=== PATIENT | female | born 1975 ===

== ENCOUNTER 2016-09-05 09:57 | Observation (INO) | payer OTHER ==
[2016-09-05 09:59] VITALS: BMI 28.3
[2016-09-05 10:01] VITALS: BP 95/67; PULSE 69; RESP 19; TEMP 98.5; O2SAT 98
--- NOTE | 2016-09-05 12:23 | US ---
HISTORY: Right upper quadrant pain COMPARISON: None. TECHNIQUE: Sonographic evaluation of the right upper quadrant of the abdomen. FINDINGS: LIVER: Measures 15.6 cm in length. Normal echogenicity of the liver parenchyma. No mass. No intrahepatic bile duct dilatation. GALLBLADDER: Unremarkable. No gallstones. COMMON BILE DUCT: Measures 5 mm. No stones. No dilatation. PANCREAS: Unremarkable as visualized. No mass. No ductal dilatation. RIGHT KIDNEY: Measures 12.3 cm in length. Normal echogenicity. No calculus, mass, or hydronephrosis. AORTA: No aneurysmal dilatation. IVC: Unremarkable. OTHER FINDINGS: None . IMPRESSION: Unremarkable abdominal ultrasound examination. No evidence of cholelithiasis or cholecystitis.
[2016-09-05] MEDS: Sodium Chloride 0.9% 500 ML IV SCH ×2 (12:35→15:35)
--- NOTE | 2016-09-05 12:35 | ED PDOC ---
HPI: Abdomen Chief Complaint (Provider): Pt. denies Rib Injury but does state experiencing pain in the RUQ History Per: Patient History/Exam Limitations: no limitations Onset/Duration Of Symptoms: Days (One) Outside of [place] travel?: No Current Symptoms Are (Timing): Still Present Severity: Moderate Pain Scale Rating Of: 7 Location Of Pain/Discomfort: RUQ Quality Of Discomfort: Sharp Associated Symptoms: Nausea, Vomiting Exacerbating Factors: None Alleviating Factors: None Last Bowel Movement: Yesterday Abnormal Vaginal Bleeding: No Last Menstral Period: 08/30/16 <Pelon Mckeon - Last Filed: 09/05/16 13:14> <Nicky De La Cruz - Last Filed: 09/05/16 15:38> Time Seen by Provider: 09/05/16 10:24 Chief Complaint (Nursing): Rib Injury Additional Complaint(s): Pt. here today complaining of abdominal pain localized to RUQ. Pt. explains the pain is localized near her rib under her right breast. Pt. reports pain begain yesterday in the afternoon all of a suddent. Patient denies any food intake at that time bur reports vomiting x 1. The vomiting episode was non-bloody and non- billious. Pt. states the pain got better spontaneously but still felt a persistent discomfort and subsequently vomited x 2 after the initial episode of vomit. Pt. states that she has no had anything to eat since last afternoon or used any medication. Pt. states that she was able to walk to the hospital by herself unassisted this morning because the pain persists. Pain is 7/10 and has not vomited this morning. Pt. also states she has not had this type of pain in the past. On ROS, pt. denies any hemoptysis, hematemeis, chest pain, shortness of breath, flank pain, dysuria, hematuria, vaginal bleeding, fever, chills, night sweats or weight loss. Pt. also denies any alcohol, tobacco, or drug use. (Pelon Mckeon) Past Medical History - Medical History PMH: Arthritis Other PMH: Rt. shoulder impingement - Surgical History Surgical History: Appendectomy Other surgeries: Breast Implant Removal - Family History Family History: States: Unknown Family Hx - Living Arrangements Living Arrangements: Other (with son) - Social History Current smoker - smoking cessation education provided: No Alcohol: Social Drugs: Denies <Pelon Mckeon - Last Filed: 09/05/16 13:14> <Nicky De La Cruz - Last Filed: 09/05/16 15:38> Vital Signs: Last Vital Signs Temp 98.5 F 09/05/16 10:00 Pulse 69 09/05/16 10:00 Resp 19 09/05/16 10:00 BP 95/67 L 09/05/16 10:00 Pulse Ox 98 09/05/16 13:15 - Home Medications Home Medications: Ambulatory Orders Medication Instructions Recorded traMADol [Ultram] 50 mg PO Q8 #10 tab 09/07/15 Clindamycin [Cleocin] 300 mg PO QID #40 cap 12/09/15 Dapsone 100 mg PO DAILY #10 tab 12/09/15 Methylprednisolone [Medrol] 4 mg PO TITR #1 unit 12/09/15 - Allergies Allergies/Adverse Reactions: Allergies Allergy/AdvReac Type Severity Reaction Status Date / Time No Known Allergies Allergy Verified 04/02/15 08:31 Review of Systems Gastrointestinal: Positive for: Abdominal Pain (See HPI) <Pelon Mckeon - Last Filed: 09/05/16 13:14> Physical Exam - Reviewed Vital Signs Reviewed: Yes - Physical Exam Appears: Positive for: Non-toxic, No Acute Distress (smiling) Head Exam: Positive for: ATRAUMATIC, NORMOCEPHALIC Eye Exam: Positive for: Normal appearance. Negative for: Scleral icterus Neck: Positive for: Supple Cardiovascular/Chest: Positive for: Regular Rate, Rhythm. Negative for: Murmur Respiratory: Positive for: Normal Breath Sounds. Negative for: Wheezing Gastrointestinal/Abdominal: Positive for: Tenderness (Rt. upper quadrant, no bruising noted in the Rt. upper quadrant area). 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 (Nicky De La Cruz) - Progress ED Course And Treament: 1- I.V. fluids 2- I.V morphine, pepcid, morphine 3- CBC, CMP, lipase, amylase, urine dip, urine preg 4- RUQ U/S w/ gallbladder (Pelon Mckeon) ED OBSERVATION <Pelon Mckeon - Last Filed: 09/05/16 13:14> Date of observation admission: 09/05/16 Time of observation admission: 11:00 <Nicky De La Cruz - Last Filed: 09/05/16 15:38> - Observation admission statement Patient is being placed in observation because:: Abdominal pain (Nicky De La Cruz) - Goals of Observation Goals of observation are:: resolution of symptoms (Nicky De La Cruz) Disposition - Disposition Disposition Time: 13:15 <Pelon Mckeon - Last Filed: 09/05/16 13:14> - Patient ED Disposition Is Patient to be Admitted: No - Disposition Disposition: Routine/Home <Nicky De La Cruz - Last Filed: 09/05/16 15:38> - Clinical Impression Clinical Impression: RUQ abdominal pain - Disposition Condition: STABLE
[2016-09-05 12:55] LABS: HEMATOCRIT 36.8 % (34.0-47.0); MEAN CELL VOLUME 88.5 fl (81.0-99.0); MEAN CORPUSCULAR HGB CONC 32.7 g/dL (33.0-37.0); RED CELL DISTRIBUTION WIDTH 13.5 % (11.5-14.5); WHITE BLOOD COUNT 9.9 K/uL (4.8-10.8)
[2016-09-05 13:02] LABS: ALB/GLOB RATIO 1.6 (1.0-2.1); ALKALINE PHOSPHATASE 64 U/L (38-126); ALT/SGPT 55 U/L (9-52); AMYLASE 81 U/L (30-110); AST/SGOT 34 U/L (14-36); BILIRUBIN,TOTAL 0.4 mg/dl (0.2-1.3); BLOOD UREA NITROGEN 9 mg/dl (7-17); CALCIUM 9.1 mg/dL (8.4-10.2); CARBON DIOXIDE 28 mmol/L (22-30); CHLORIDE 103 mmol/L (98-107); GFR AFRICAN-AMERICAN > 60; GLUCOSE,RANDOM 76 mg/dL (65-105); LIPASE 75 U/L (23-300); POTASSIUM 3.8 MMOL/L (3.6-5.0); SODIUM 143 mmol/l (132-148); TOTAL PROTEIN 7.5 G/DL (6.3-8.2)
--- NOTE | 2016-09-05 14:25 | CT ---
PROCEDURE: CT Abdomen and Pelvis without intravenous contrast HISTORY: R flank pain COMPARISON: 09/07/2015 TECHNIQUE: Without contrast.. Contrast Dose: 0 Radiation dose: Total exam DLP = 829.18 mGy-cm. This CT exam was performed using one or more of the following dose reduction techniques: Automated exposure control, adjustment of the mA and/or kV according to patient size, and/or use of iterative reconstruction technique. FINDINGS: LOWER THORAX: Probable dependent atelectasis posterior lower lobe bilaterally. LIVER: Unremarkable. No gross lesion or ductal dilatation. GALLBLADDER AND BILE DUCTS: Unremarkable. PANCREAS: Unremarkable. No gross lesion or ductal dilatation. SPLEEN: Unremarkable. ADRENALS: Unremarkable. No mass. KIDNEYS AND URETERS: Unremarkable. No hydronephrosis. No solid mass. No renal or ureteral calculus. VASCULATURE: Unremarkable. No aortic aneurysm. BOWEL: Unremarkable. No obstruction. No gross mural thickening. APPENDIX: Not identified. No secondary findings to suggest acute appendicitis. PERITONEUM: Trace fluid in cul-de-sac. There is a coarse calcifications seen dependently within this cul-de-sac fluid, nonspecific. Is not concerning for neoplastic process. In retrospect, the not identified on examination of 09/07/2015, this can be seen on earlier examination of 04/02/2015 without interval change. LYMPH NODES: Unremarkable. No enlarged lymph nodes. BLADDER: Unremarkable. REPRODUCTIVE: Unremarkable uterus. BONES: No acute fracture. OTHER FINDINGS: None. IMPRESSION: No evidence of urinary calculus or urinary tract obstruction. Additional minor findings as above.
--- NOTE | 2016-09-05 15:56 | RAD ---
HISTORY: RUQ pain COMPARISON: 09/07/2015 TECHNIQUE: Chest PA and lateral FINDINGS: LUNGS: No active pulmonary disease. PLEURA: No significant pleural effusion identified. No pneumothorax apparent. CARDIOVASCULAR: Normal. OSSEOUS STRUCTURES: No significant abnormalities. VISUALIZED UPPER ABDOMEN: Normal. OTHER FINDINGS: None. IMPRESSION: No active disease.
--- NOTE | 2016-09-06 12:51 | CARD ---
APPROVED REPORT EKG Measurement Heart [id number] <Conclusion> Sinus bradycardia Otherwise normal ECG
== END 2016-09-05 15:48 | disposition home or self-care (01) ==
LOC: H.ER 09:57 → H.EROBSV 11:00
PROVIDERS: ADMIT Emergency Medicine; ATTEND Emergency Medicine
DX: R10.11 Right upper quadrant pain (principal); Z98.82 Breast implant status

== ENCOUNTER 2016-09-21 09:12 | Emergency (ER) | payer OTHER ==
[2016-09-21 09:12] VITALS: BMI 28.3
[2016-09-21 09:16] VITALS: BP 109/68; RESP 18; TEMP 98.4
[2016-09-21] MEDS ORDERED: Naproxen 500 MG TAB PO STA (09:36)
--- NOTE | 2016-09-21 10:00 | ED PDOC ---
HPI: Back Time Seen by Provider: 09/21/16 09:21 Chief Complaint (Nursing): Back Pain Chief Complaint (Provider): Back Pain History Per: Patient History/Exam Limitations: no limitations Onset/Duration Of Symptoms: Days Current Symptoms Are (Timing): Still Present Severity: Mild Associated Symptoms: None Additional Complaint(s): Patient is a 41 year old female presenting to the ED complaining of right sided back pain since last visit x2 weeks ago. Patient was in the ED for RUQ pain. CT A/P did not show any acute diseases or injury. Patient has not been taking pain medication and has yet to follow up. Patient complains of urinary hesitancy. Denies hematuria, dysuria, fever, nausea, vomiting, or abdominal pain. PMD: none Past Medical History Reviewed: Historical Data, Nursing Documentation, Vital Signs Vital Signs: Last Vital Signs Temp 98.4 F 09/21/16 09:16 Pulse 101 H 09/21/16 09:16 Resp 18 09/21/16 09:16 BP 109/68 09/21/16 09:16 Pulse Ox 96 09/21/16 09:16 - Medical History PMH: Arthritis - Surgical History Surgical History: Appendectomy - Family History Family History: States: No Known Family Hx - Home Medications Home Medications: Ambulatory Orders Medication Instructions Recorded traMADol [Ultram] 50 mg PO Q8 #10 tab 09/07/15 Clindamycin [Cleocin] 300 mg PO QID #40 cap 12/09/15 Dapsone 100 mg PO DAILY #10 tab 12/09/15 Methylprednisolone [Medrol] 4 mg PO TITR #1 unit 12/09/15 Naproxen [Naprosyn] 500 mg PO BID PRN #15 tablet 09/05/16 - Allergies Allergies/Adverse Reactions: Allergies Allergy/AdvReac Type Severity Reaction Status Date / Time No Known Allergies Allergy Verified 04/02/15 08:31 Review of Systems ROS Statement: Except As Marked, All Systems Reviewed And Found Negative Constitutional: Negative for: Fever Gastrointestinal: Negative for: Nausea, Vomiting, Abdominal Pain Genitourinary Female: Positive for: Other (urinary hesitence ). Negative for: Hematuria Musculoskeletal: Positive for: Back Pain Physical Exam - Reviewed Nursing Documentation Reviewed: Yes Vital Signs Reviewed: Yes - Physical Exam Appears: Positive for: Well, Non-toxic, No Acute Distress Head Exam: Positive for: ATRAUMATIC, NORMAL INSPECTION, NORMOCEPHALIC Skin: Positive for: Normal Color, Warm, DRY Eye Exam: Positive for: Normal appearance, EOMI Neck: Positive for: Normal, Painless ROM Cardiovascular/Chest: Positive for: Regular Rate, Rhythm. Negative for: Gallop , Murmur Respiratory: Positive for: Normal Breath Sounds. Negative for: Accessory Muscle Use, Rhonchi, Respiratory Distress Gastrointestinal/Abdominal: Positive for: Normal Exam, Soft. Negative for: Tenderness Back: Positive for: R CVA Tenderness. Negative for: L CVA Tenderness Extremity: Positive for: Normal ROM Neurologic/Psych: Positive for: Alert, Oriented - ECG O2 Sat by Pulse Oximetry: 96 Medical Decision Making Medical Decision Making: Time: 9:25 Impression: 41 y/o female w/ R CVA tend DDx: UTI r/o pylonephritis Plan: UDip UPreg Naproxen 500 mg PO UA Scribe Attestation: Documented by Christine Chavez acting as a scribe for Nicky De La Cruz MD. Scribe Attestation: All medical record entries made by the Scribe were at my direction and personally dictated by me. I have reviewed the chart and agree that the record accurately reflects my personal performance of the history, physical exam, medical decision making, and the department course for this patient. I have also personally directed, reviewed, and agree with the discharge instructions and disposition.
--- NOTE | 2016-09-21 11:19 | US ---
PROCEDURE: Ultrasound of the Kidneys HISTORY: R CVA tenderness COMPARISON: Comparison made with prior study dated 09/05/2016 TECHNIQUE: Renal ultrasound dated 09/21/2016 FINDINGS: RIGHT KIDNEY: Measures: Approximately 11.0 x 4.5 x 5.0 cm. Normal in size, contour and echogenicity. No stone, solid mass lesion or hydronephrosis visualized. LEFT KIDNEY: Measures: 11.4 x 4.7 x 5.4 cm. Normal in size, contour and echogenicity. No stone, solid mass lesion or hydronephrosis visualized. OTHER FINDINGS: None. IMPRESSION: No evidence of obstructing nephrolithiasis or hydronephrosis.
[2016-09-21 11:20] LABS: RBC URINE 80 /hpf (0-3); URINE BILIRUBIN NEGATIVE (NEGATIVE); URINE BLOOD LARGE (NEGATIVE); URINE COLOR AMBER (YELLOW); URINE GLUCOSE (UA) NEG (Normal); URINE KETONE NEGATIVE (NEGATIVE); URINE LEUKOCYTE ESTERASE NEG Leu/uL (Negative); URINE PROTEIN 100 mg/dL (NEGATIVE); WBC URINE 1 /hpf (0-5)
[2016-09-21 12:04] VITALS: PULSE 87; O2SAT 99
== END 2016-09-21 12:03 | disposition home or self-care (01) ==
LOC: H.ER 09:12
DX: N39.0 Urinary tract infection, site not specified (principal)

== ENCOUNTER 2016-11-12 17:36 | Emergency (ER) | payer OTHER ==
[2016-11-12 17:36] VITALS: BMI 28.3
[2016-11-12 17:51] VITALS: BP 108/59; PULSE 72; RESP 16; TEMP 98.3; O2SAT 98
[2016-11-12] MEDS ORDERED: Oxycodone/Acetaminophen 5/325 mg Tab PO STA (18:15)
[2016-11-12] MEDS ORDERED: Oxycodone/Acetaminophen 5/325 mg Tab ONE (18:33)
[2016-11-12 19:30] LABS: SQUAMOUS EPITHIAL 1 /hpf (0-5); URINE BACTERIA FEW (<OCC); URINE BILIRUBIN NEGATIVE (NEGATIVE); URINE CLARITY CLEAR (Clear); URINE COLOR YELLOW (YELLOW); URINE GLUCOSE (UA) NEG (Normal); URINE LEUKOCYTE ESTERASE SMALL Leu/uL (Negative); URINE NITRATE NEGATIVE (NEGATIVE); URINE PROTEIN NEGATIVE (NEGATIVE); URINE UROBILINOGEN 0.2-1.0 mg/dL (0.2-1.0)
[2016-11-12 19:35] LABS: URINE BLOOD SMALL (NEGATIVE)
--- NOTE | 2016-11-12 19:53 | ED PDOC ---
HPI: General Adult Time Seen by Provider: 11/12/16 17:48 Chief Complaint (Nursing): Groin Pain Chief Complaint (Provider): Pelvic pain > 1 week History Per: Patient Additional Complaint(s): Pt states she was seen in clinic for evaluation of pelvic pain. PT states she was in a [facility] relationship that recently ended. Pt states she had PAP and culture done in the clinic. Pt was given Rx for mammogram and urine. PT states that she was told she would also get Rx for pelvic US but was not given one. Pt reports same pain. No discharge. 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 Past Medical History Reviewed: Historical Data, Nursing Documentation, Vital Signs Vital Signs: Last Vital Signs Temp 98.3 F 11/12/16 17:47 Pulse 72 11/12/16 17:47 Resp 16 11/12/16 17:47 BP 108/59 L 11/12/16 17:47 Pulse Ox 98 11/12/16 17:47 - Medical History PMH: Arthritis - Surgical History Surgical History: Appendectomy - Family History Family History: States: No Known Family Hx - Living Arrangements Living Arrangements: With Family - Social History Current smoker - smoking cessation education provided: No Alcohol: None Drugs: Denies - Home Medications Home Medications: Ambulatory Orders Medication Instructions Recorded traMADol [Ultram] 50 mg PO Q8 #10 tab 09/07/15 Clindamycin [Cleocin] 300 mg PO QID #40 cap 12/09/15 Dapsone 100 mg PO DAILY #10 tab 12/09/15 Methylprednisolone [Medrol] 4 mg PO TITR #1 unit 12/09/15 Naproxen [Naprosyn] 500 mg PO BID PRN #15 tablet 09/05/16 Acetaminophen with Codeine 1 tab PO Q6H PRN #10 tab 09/21/16 [Tylenol with Codeine No. 3 300 mg-30 mg] oxyCODONE/Acetaminophen [Percocet 1 ea PO Q6H PRN #5 tab 11/12/16 5/325 mg Tab] - Allergies Allergies/Adverse Reactions: Allergies Allergy/AdvReac Type Severity Reaction Status Date / Time No Known Allergies Allergy Verified 04/02/15 08:31 Review of Systems ROS Statement: Except As Marked, All Systems Reviewed And Found Negative Genitourinary Female: Positive for: Pelvic Pain Physical Exam - Reviewed Nursing Documentation Reviewed: Yes Vital Signs Reviewed: Yes - Physical Exam Appears: Positive for: Well, Non-toxic, No Acute Distress Head Exam: Positive for: ATRAUMATIC, NORMAL INSPECTION, NORMOCEPHALIC Skin: Positive for: Warm. Negative for: Normal Color Eye Exam: Positive for: Normal appearance ENT: Positive for: Normal ENT Inspection Neck: Positive for: Normal, Painless ROM Cardiovascular/Chest: Positive for: Regular Rate, Rhythm Respiratory: Positive for: Normal Breath Sounds. Negative for: Accessory Muscle Use, Respiratory Distress Gastrointestinal/Abdominal: Positive for: Normal Exam, Bowel Sounds, Soft. Negative for: Tenderness Back: Positive for: Normal Inspection Extremity: Positive for: Normal ROM Neurologic/Psych: Positive for: Alert, Oriented - ECG O2 Sat by Pulse Oximetry: 98 Disposition - Clinical Impression Clinical Impression: Pelvic pain - Patient ED Disposition Is Patient to be Admitted: No Counseled Patient/Family Regarding: Diagnosis, Need For Followup, Rx Given - [facility]position [facility] Disposition: Routine/Home Disposition Time: 19:52 Condition: GOOD Additional Instructions: Please follow-up with the clinic. Prescriptions: oxyCODONE/Acetaminophen [Percocet 5/325 mg Tab] 1 ea PO Q6H PRN #5 tab PRN Reason: Pain, Severe (8-10) Instructions: Pelvic Pain in Women (ED)
== END 2016-11-12 20:39 | disposition home or self-care (01) ==
LOC: H.ER 17:36
DX: R10.2 Pelvic and perineal pain (principal)

== ENCOUNTER 2016-11-17 21:17 | Emergency (ER) | payer OTHER ==
[2016-11-17 21:17] VITALS: BMI 28.3
[2016-11-17 21:33] VITALS: BP 108/66; PULSE 75; RESP 18; TEMP 98.3; O2SAT 98
--- NOTE | 2016-11-17 21:40 | ED PDOC ---
HPI: Skin/Bite Injury Time Seen by Provider: 11/17/16 21:33 Chief Complaint (Nursing): Allergic Reaction Chief Complaint (Provider): Redness and itchiness around the right eye History Per: Patient History/Exam Limitations: no limitations Onset/Duration Of Symptoms: Hrs Current Symptoms Are (Timing): Still Present Quality Of Symptoms: Painful, Itching Severity: Moderate Additional Complaint(s): PT states she had an insect bite which was itch at approx 10 am. PT states this evening it began to get swollen and was very itchy. Past Medical History Reviewed: Historical Data, Nursing Documentation, Vital Signs Vital Signs: Last Vital Signs Temp 98.3 F 11/17/16 21:27 Pulse 75 11/17/16 21:27 Resp 18 11/17/16 21:27 BP 108/66 11/17/16 21:27 Pulse Ox 98 11/17/16 21:27 - Medical History PMH: Arthritis - Surgical History Surgical History: Appendectomy - Family History Family History: States: No Known Family Hx - Home Medications Home Medications: Ambulatory Orders Medication Instructions Recorded traMADol [Ultram] 50 mg PO Q8 #10 tab 09/07/15 Clindamycin [Cleocin] 300 mg PO QID #40 cap 12/09/15 Dapsone 100 mg PO DAILY #10 tab 12/09/15 Methylprednisolone [Medrol] 4 mg PO TITR #1 unit 12/09/15 Naproxen [Naprosyn] 500 mg PO BID PRN #15 tablet 09/05/16 Acetaminophen with Codeine 1 tab PO Q6H PRN #10 tab 09/21/16 [Tylenol with Codeine No. 3 300 mg-30 mg] oxyCODONE/Acetaminophen [Percocet 1 ea PO Q6H PRN #5 tab 11/12/16 5/325 mg Tab] Clindamycin [Cleocin] 300 mg PO QID #40 cap 11/17/16 predniSONE [predniSONE Tab] 20 mg PO DAILY #12 tab 11/17/16 - Allergies Allergies/Adverse Reactions: Allergies Allergy/AdvReac Type Severity Reaction Status Date / Time No Known Allergies Allergy Verified 04/02/15 08:31 Review of Systems ROS Statement: Except As Marked, All Systems Reviewed And Found Negative Constitutional: Negative for: Fever, Chills Eyes: Positive for: Pain, Eyelid Inflammation. Negative for: Vision Change, Conjunctivae Inflammation Physical Exam - Reviewed Nursing Documentation Reviewed: Yes Vital Signs Reviewed: Yes - Physical Exam Appears: Positive for: Well, Non-toxic, No Acute Distress Head Exam: Positive for: ATRAUMATIC, NORMAL INSPECTION, NORMOCEPHALIC Skin: Positive for: Normal Color, Warm, DRY Eye Exam: Positive for: EOMI, PERRL, Periorbital swelling. Negative for: Normal appearance, Periorbital tenderness, Conjunctival injection ENT: Positive for: Normal ENT Inspection Neck: Positive for: Normal, Painless ROM Respiratory: Negative for: Accessory Muscle Use Back: Positive for: Normal Inspection Extremity: Positive for: Normal ROM Neurologic/Psych: Positive for: Alert, Oriented - ECG O2 Sat by Pulse Oximetry: 98 Disposition - Clinical Impression Clinical Impression: Allergic reaction - Patient ED Disposition Is Patient to be Admitted: No Counseled Patient/Family Regarding: Diagnosis, Need For Followup, Rx Given - Disposition Disposition: Routine/Home Disposition Time: 21:37 Condition: GOOD Prescriptions: Clindamycin [Cleocin] 300 mg PO QID #40 cap predniSONE [predniSONE Tab] 20 mg PO DAILY #12 tab Instructions: Insect Bite or Sting (ED) Forms: [facility] (Divehi)
== END 2016-11-17 22:00 | disposition home or self-care (01) ==
LOC: H.ER 21:17
DX: T78.40XA Allergy, unspecified, initial encounter (principal); X58.XXXA Exposure to other specified factors, initial encounter

== ENCOUNTER 2017-05-12 10:34 | Emergency (ER) | payer OTHER ==
[2017-05-12 10:34] VITALS: BMI 28.3
[2017-05-12 10:47] VITALS: BP 97/48; PULSE 80; RESP 16; TEMP 98; O2SAT 100
--- NOTE | 2017-05-12 13:40 | ED PDOC ---
HPI: CCC, URI, Sore Throat Time Seen by Provider: 05/12/17 11:07 Chief Complaint (Nursing): ENT Problem Chief Complaint (Provider): Cough, congestion History Per: Patient History/Exam Limitations: no limitations Onset/Duration Of Symptoms: Days (x1) Current Symptoms Are (Timing): Still Present Location Of Pain: Other (Right side facial pain) Associated Symptoms: Cough, Nasal Congestion. denies: Fever Ear Symptoms: Bilateral: None Additional Complaint(s): Mora Zelaya is a 41 year old female, with no significant past medical history, who presents to the emergency department complaining of cough, congestion and right sided facial pain onset since yesterday. Patient states she has been taking over the counter cold medication without relief. She reports pain to face worsen when she bends forward. Patient denies any fever, chills or other medical complaints. PMD: None provided. Past Medical History Reviewed: Historical Data, Nursing Documentation, Vital Signs Vital Signs: Last Vital Signs Temp 98.0 F 05/12/17 10:44 Pulse 80 05/12/17 10:44 Resp 16 05/12/17 10:44 BP 97/48 L 05/12/17 10:44 Pulse Ox 100 05/12/17 10:44 - Medical History PMH: Arthritis - Surgical History Surgical History: Appendectomy - Family History Family History: States: Unknown Family Hx - Social History Current smoker - smoking cessation education provided: Yes (light smoker <10 cigarettes daily) Alcohol: Social Drugs: Cannabis - Home Medications Home Medications: Ambulatory Orders Medication Instructions Recorded traMADol [Ultram] 50 mg PO Q8 #10 tab 09/07/15 Clindamycin [Cleocin] 300 mg PO QID #40 cap 12/09/15 Dapsone 100 mg PO DAILY #10 tab 12/09/15 Methylprednisolone [Medrol] 4 mg PO TITR #1 unit 12/09/15 Naproxen [Naprosyn] 500 mg PO BID PRN #15 tablet 09/05/16 Acetaminophen with Codeine 1 tab PO Q6H PRN #10 tab 09/21/16 [Tylenol with Codeine No. 3 300 mg-30 mg] oxyCODONE/Acetaminophen [Percocet 1 ea PO Q6H PRN #5 tab 11/12/16 5/325 mg Tab] Clindamycin [Cleocin] 300 mg PO QID #40 cap 11/17/16 predniSONE [predniSONE Tab] 20 mg PO DAILY #12 tab 11/17/16 Amoxicillin/Clavulanate [Augmentin 1 tab PO BID #20 tab 05/12/17 500 MG-125 MG] Fluticasone Propionate [Flonase] 2 spr NS DAILY PRN #1 bottle 05/12/17 Pseudoephedrine HCl [Sudafed] 1 - 2 tab PO Q8 PRN #30 tablet 05/12/17 - Allergies Allergies/Adverse Reactions: Allergies Allergy/AdvReac Type Severity Reaction Status Date / Time No Known Allergies Allergy Verified 04/02/15 08:31 Review of Systems ROS Statement: Except As Marked, All Systems Reviewed And Found Negative Constitutional: Positive for: Other (right sided facial pain). Negative for: Fever ENT: Positive for: Nose Congestion Respiratory: Positive for: Cough Physical Exam - Reviewed Nursing Documentation Reviewed: Yes Vital Signs Reviewed: Yes - Physical Exam Comments: Appears: No acute distress Head: Right sided malar tenderness Skin: Normal color, Warm, Dry Eyes: Normal appearance, PERRL, EOMI ENT: Normal. Cardiac: Regular rate and rhythm Lungs: Normal breath sounds, no respiratory distress, no accessory muscle use Abdominal: No tenderness Neuro: Alert, Oriented - ECG O2 Sat by Pulse Oximetry: 100 (RA) Pulse Ox Interpretation: Normal Medical Decision Making Medical Decision Making: Initial Impression: sinusitis Initial Plan: --reevaluation 11:50 Upon provider reevaluation patient is feeling better, is medically stable, and requires no further treatment in the ED at this time. Patient will be discharged home with Rx for Augmentin, Flonase, and Sudafed. Counseling was provided and all questions were answered regarding diagnosis. There is agreement to discharge plan. Return if symptoms persist or worsen. ~ Scribe Attestation: Documented by Parvez Zuniga, acting as a scribe for Patrice Muhammad PA-C. Provider Scribe Attestation: All medical record entries made by the Scribe were at my direction and personally dictated by me. I have reviewed the chart and agree that the record accurately reflects my personal performance of the history, physical exam, medical decision making, and the department course for this patient. I have also personally directed, reviewed, and agree with the discharge instructions and disposition. Disposition - Clinical Impression Clinical Impression: Sinusitis - Disposition Disposition: Routine/Home Disposition Time: 11:50 Condition: STABLE Prescriptions: Amoxicillin/Clavulanate [Augmentin 500 MG-125 MG] 1 tab PO BID #20 tab Fluticasone Propionate [Flonase] 2 spr NS DAILY PRN #1 bottle PRN Reason: Allergy Symptoms Pseudoephedrine HCl [Sudafed] 1 - 2 tab PO Q8 PRN #30 tablet PRN Reason: congestion Instructions: Sinusitis (ED) Forms: [facility] (Macedonian), [facility] ED School/Work Excuse
== END 2017-05-12 12:02 | disposition home or self-care (01) ==
LOC: H.ER 10:34
DX: J32.9 Chronic sinusitis, unspecified (principal); F17.210 Nicotine dependence, cigarettes, uncomplicated

== ENCOUNTER 2017-05-15 05:57 | Emergency (ER) | payer BC, OTHER ==
[2017-05-15 05:58] VITALS: BMI 28.3
[2017-05-15 06:22] VITALS: TEMP 97.9
[2017-05-15] MEDS ORDERED: Sodium Chloride 0.9% 1,000 ML IV STA (07:32)
--- NOTE | 2017-05-15 08:08 | ED PDOC ---
HPI: Headache Time Seen by Provider: 05/15/17 07:05 Chief Complaint (Nursing): Headache Chief Complaint (Provider): Dizziness History Per: Patient History/Exam Limitations: no limitations Onset/Duration Of Symptoms: Days (1-2) Current Symptoms Are (Timing): Still Present Associated Symptoms: Nausea, Other (pain on the right-side) Additional Complaint(s): Mora Zelaya, a 41 year old female with a past medical history of arthritis, presents to the ED complaining of dizziness onset one to two days associated with nausea and feeling the room-spinning whenever she looks to the right-side. Also reports pain on the right-side of the neck, head, and back. Patient had reported to the ED three days ago and was diagnosed with sinusitis. Denies chest pain of shortness of breath. PMD:Provider TBD Past Medical History Reviewed: Historical Data, Nursing Documentation, Vital Signs Vital Signs: Last Vital Signs Temp 97.9 F 05/15/17 06:19 Pulse 67 05/15/17 06:19 Resp 16 05/15/17 06:19 BP 108/70 05/15/17 06:19 Pulse Ox 100 05/15/17 06:19 - Medical History PMH: Arthritis - Surgical History Surgical History: Appendectomy Other surgeries: Breast implantations and removal - Family History Family History: States: Unknown Family Hx - Social History Current smoker - smoking cessation education provided: Yes Drugs: Cannabis - Home Medications Home Medications: Ambulatory Orders Medication Instructions Recorded traMADol [Ultram] 50 mg PO Q8 #10 tab 09/07/15 Clindamycin [Cleocin] 300 mg PO QID #40 cap 12/09/15 Dapsone 100 mg PO DAILY #10 tab 12/09/15 Methylprednisolone [Medrol] 4 mg PO TITR #1 unit 12/09/15 Naproxen [Naprosyn] 500 mg PO BID PRN #15 tablet 09/05/16 Acetaminophen with Codeine 1 tab PO Q6H PRN #10 tab 09/21/16 [Tylenol with Codeine No. 3 300 mg-30 mg] oxyCODONE/Acetaminophen [Percocet 1 ea PO Q6H PRN #5 tab 11/12/16 5/325 mg Tab] Clindamycin [Cleocin] 300 mg PO QID #40 cap 11/17/16 predniSONE [predniSONE Tab] 20 mg PO DAILY #12 tab 11/17/16 Amoxicillin/Clavulanate [Augmentin 1 tab PO BID #20 tab 05/12/17 500 MG-125 MG] Fluticasone Propionate [Flonase] 2 spr NS DAILY PRN #1 bottle 05/12/17 Pseudoephedrine HCl [Sudafed] 1 - 2 tab PO Q8 PRN #30 tablet 05/12/17 Meclizine [Meclizine*] 25 mg PO TID #30 tab 05/15/17 Ondansetron [Ondansetron Odt] 4 mg PO TID PRN #15 tab.rapdis 05/15/17 Ondansetron [Zofran] 4 mg PO Q8H #9 tab 05/15/17 - Allergies Allergies/Adverse Reactions: Allergies Allergy/AdvReac Type Severity Reaction Status Date / Time No Known Allergies Allergy Verified 04/02/15 08:31 Review of Systems ROS Statement: Except As Marked, All Systems Reviewed And Found Negative Cardiovascular: Negative for: Chest Pain Respiratory: Negative for: Shortness of Breath Gastrointestinal: Positive for: Nausea Musculoskeletal: Positive for: Neck Pain, Other (head pain and back pain) Neurological: Positive for: Dizziness Physical Exam - Reviewed Nursing Documentation Reviewed: Yes Vital Signs Reviewed: Yes - Physical Exam Appears: Positive for: Well, Non-toxic, No Acute Distress Head Exam: Positive for: ATRAUMATIC, NORMAL INSPECTION, NORMOCEPHALIC Skin: Positive for: Normal Color, Warm, Dry Eye Exam: Positive for: Other (double vision) ENT: Positive for: Normal ENT Inspection Cardiovascular/Chest: Positive for: Regular Rate, Rhythm. Negative for: Murmur , Bradycardia Back: Positive for: Vertebral Tenderness, Other (palpations to the right mastoid ) Neurologic/Psych: Positive for: Alert, Oriented (x3) - Laboratory Results Result Diagrams: 05/15/17 08:15 05/15/17 08:15 - ECG O2 Sat by Pulse Oximetry: 100 (RA) Pulse Ox Interpretation: Normal Medical Decision Making Medical Decision Making: Time: 7:32 Initial Impression: Vertigo and Mastoiditis Initial Plan: --CT head w/o contrast --CT mastoids w/o contrast --BMP --CBC --Erythrocyte sedimentation rate --Antivert 25mg --Normal Saline 1,000ml IV 1,000mls/hr --Zofran Inj 4mg IVP --Reevaluation Documented by Loraine Higgins acting as a scribe for Dinora Ross MD. All medical record entries made by the Scribe were at my direction and personally dictated by me. I have reviewed the chart and agree that the record accurately reflects my personal performance of the history, physical exam, medical decision making, and the department course for this patient. I have also personally directed, reviewed, and agree with the discharge instructions and disposition. patient is feeling better. she is able to sit up easily and smile. Will d/c with meclizine and zofran. Disposition - Clinical Impression Clinical Impression: Vertigo - Patient ED Disposition Is Patient to be Admitted: No Doctor Will See Patient In The: Office Counseled Patient/Family Regarding: Diagnosis, Need For Followup, Rx Given - Disposition Referrals: Aleks De La O MD [Family Provider] - [facility] [Outside] Disposition: Routine/Home Disposition Time: 09:34 Condition: STABLE Prescriptions: Meclizine [Meclizine*] 25 mg PO TID #30 tab Ondansetron [Ondansetron Odt] 4 mg PO TID PRN #15 tab.rapdis PRN Reason: Nausea/Vomiting Ondansetron [Zofran] 4 mg PO Q8H #9 tab Instructions: Vertigo (ED) Forms: [employer] (Latvian) - POA Present On Arrival: None
[2017-05-15 08:31] LABS: BASO # 0.1 K/uL (0.0-0.2); BASO % 1.4 % (0.0-2.0); EOS % 0.3 % (0.0-4.0); HEMOGLOBIN 12.3 g/dL (12.0-16.0); LYMPH # 2.2 K/uL (1.0-4.3); LYMPH % 23.2 % (20.0-40.0); MEAN CELL VOLUME 88.8 fl (81.0-99.0); MEAN CORPUSCULAR HEMOGLOBIN 28.7 pg (27.0-31.0); MEAN CORPUSCULAR HGB CONC 32.3 g/dL (33.0-37.0); MEAN PLATELET VOLUME 8.1 fl (7.2-11.7); MONO # 0.5 K/uL (0.0-0.8); MONO % 5.8 % (0.0-10.0); NEUT # 6.4 K/uL (1.8-7.0); NEUT % 69.3 % (50.0-75.0); NRBC % 0.1 % (0.0-0.0); RBC 4.3 Mil/uL (3.80-5.20); RED CELL DISTRIBUTION WIDTH 14.2 % (11.5-14.5); WHITE BLOOD COUNT 9.3 K/uL (4.8-10.8)
--- NOTE | 2017-05-15 08:33 | CT ---
EXAM: CT Maxillofacial Without Intravenous Contrast EXAM DATE/TIME: 05/15/2017 7:34 AM CLINICAL HISTORY: 41 years old, female; Pain; Jaw pain and maxilla pain; Additional info: Dizziness, tenderness right mastoid, sinusitis TECHNIQUE: Axial computed tomography images of the face without intravenous contrast. All CT scans at this facility use one or more dose reduction techniques, viz.: automated exposure control; ma/kV adjustment per patient size (including targeted exams where dose is matched to indication; i.e. head); or iterative reconstruction technique. Coronal and sagittal reformatted images were created and reviewed. COMPARISON: CT - HEAD W/O CONTRAST 2015-02-21 10:52 FINDINGS: Bones/joints: No acute fracture. Symmetrical temporomandibular joints. Soft tissues: Unremarkable. Orbits: Both globes, optic nerves and extraocular muscles appear symmetrical. Sinuses/mastoids: No mucosal thickening. No air-fluid levels. No fluid in middle ears. IMPRESSION: No evidence of sinusitis or mastoiditis.
[2017-05-15 08:34] LABS: BLOOD UREA NITROGEN 11 mg/dl (7-17); CALCIUM 9.6 mg/dL (8.4-10.2); GFR AFRICAN-AMERICAN > 60; GFR NON-AFRICAN AMERICAN > 60
--- NOTE | 2017-05-15 08:34 | CT ---
EXAM: CT Head Without Intravenous Contrast EXAM DATE/TIME: 05/15/2017 7:34 AM CLINICAL HISTORY: 41 years old, female; Signs and symptoms; Dizziness; Additional info: Dizziness, tenderness right mastoid, sinusitis TECHNIQUE: Axial computed tomography images of the head/brain without intravenous contrast. All CT scans at this facility use one or more dose reduction techniques, viz.: automated exposure control; ma/kV adjustment per patient size (including targeted exams where dose is matched to indication; i.e. head); or iterative reconstruction technique. Coronal and sagittal reformatted images were created and reviewed. COMPARISON: CT - HEAD W/O CONTRAST 2015-02-21 10:52 FINDINGS: There is no hemorrhage. No edema, midline shift or mass effect is noted. There is normal carrera white differentiation. Ventricles, cisterns and sulci are normal for age. Calvarium is unremarkable. Included paranasal sinuses and mastoids are clear. IMPRESSION: No acute cerebral hemorrhage or edema.
[2017-05-15 11:13] VITALS: BP 117/70; PULSE 89; RESP 20; O2SAT 98
== END 2017-05-15 10:15 | disposition home or self-care (01) ==
LOC: H.ER 05:57
DX: J32.9 Chronic sinusitis, unspecified (principal); H70.90 Unspecified mastoiditis, unspecified ear
CPT/HCPCS: 70450; 70480; 80048; 81025; 85025; 85651; 96374; 99284; J2405; J7040

== ENCOUNTER 2017-10-08 23:33 | Inpatient (IN) | payer BC, MEDICAID ==
[2017-10-08 23:34] VITALS: BMI 28.3
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
[2017-10-09 04:08] LABS: BASO % 0.4 % (0.0-2.0); EOS % 0.1 % (0.0-4.0); HEMOGLOBIN 11.5 g/dL (12.0-16.0); LYMPH # 1.3 K/uL (1.0-4.3); LYMPH % 11.2 % (20.0-40.0); MEAN CELL VOLUME 88.1 fl (81.0-99.0); MEAN CORPUSCULAR HEMOGLOBIN 29.5 pg (27.0-31.0); MEAN CORPUSCULAR HGB CONC 33.4 g/dL (33.0-37.0); MONO # 0.4 K/uL (0.0-0.8); MONO % 3.2 % (0.0-10.0); NEUT # 9.7 K/uL (1.8-7.0); NEUT % 85.1 % (50.0-75.0); NRBC % 0.1 % (0.0-0.0); RBC 3.92 Mil/uL (3.80-5.20); RED CELL DISTRIBUTION WIDTH 13.5 % (11.5-14.5); WHITE BLOOD COUNT 11.4 K/uL (4.8-10.8)
[2017-10-09 04:13] LABS: SQUAMOUS EPITHIAL 1 /hpf (0-5); URINE BACTERIA RARE (<OCC); URINE BILIRUBIN NEGATIVE (NEGATIVE); URINE BLOOD MODERATE (NEGATIVE); URINE CLARITY CLOUDY (Clear); URINE COLOR YELLOW (YELLOW); URINE GLUCOSE (UA) NEG (Normal); URINE HYALINE CAST 0-2 /hpf (0-2); URINE LEUKOCYTE ESTERASE NEG Leu/uL (Negative); URINE PROTEIN NEGATIVE (NEGATIVE)
[2017-10-09 04:18] LABS: ALB/GLOB RATIO 1.4 (1.0-2.1); ALBUMIN 4.4 g/dL (3.5-5.0); ALT/SGPT 21 U/L (9-52); AST/SGOT 20 U/L (14-36); BLOOD UREA NITROGEN 9 mg/dl (7-17); CALCIUM 9.1 mg/dL (8.4-10.2); GFR AFRICAN-AMERICAN > 60; GFR NON-AFRICAN AMERICAN > 60
[2017-10-09 04:27] LABS: BARBITURATES, UR NEGATIVE (NEGATIVE); BENZODIAZEPINES, UR NEGATIVE (NEGATIVE); OPIATES, UR NEGATIVE (NEGATIVE); PHENCYCLIDINE, UR NEGATIVE (NEGATIVE)
--- NOTE | 2017-10-09 07:51 | RAD ---
HISTORY: clearance COMPARISON: Chest radiographs 09/05/2016. FINDINGS: LUNGS: No active pulmonary disease. PLEURA: No significant pleural effusion identified, no pneumothorax apparent. CARDIOVASCULAR: Normal. OSSEOUS STRUCTURES: No significant abnormalities. VISUALIZED UPPER ABDOMEN: Normal. OTHER FINDINGS: None. IMPRESSION: No interval acute cardiopulmonary disease appreciated.
[2017-10-09 09:10] VITALS: O2SAT 98
[2017-10-09] MEDS ORDERED: Alum-Mag Hydrox-Simethicone Susp (30 mL) PO PRN (09:40)
[2017-10-09] MEDS ORDERED: DiphenhydrAMINE 50 mg/ml Inj IM PRN (09:40)
[2017-10-09] MEDS ORDERED: Magnesium Hydroxide Susp 30 ml UD PO PRN (09:40)
--- NOTE | 2017-10-09 12:50 | PCM.BM ---
<Chen Benítez - Last Filed: 10/09/17 12:48> Treatment Plan Problems - Problems identified on initial assessmt Hopelessness/Helplessness Date Initiated: 10/09/17 Time Initiated: 12:49 Assessment reference: NA Status: Active Social Isolation Date Initiated: 10/09/17 Time Initiated: 12:50 Assessment reference: NA Status: Active Treatment assets and liabiliti Patient Assests: cooperative, physically healthy, cognitively intact Patient Liabilities: poor support system, relationship conflicts - Milieu Protocol Maintain good personal hygiene: daily Encourage regular showers, every shift Remind patient to perform daily oral care, every shift Assist patient to perform ADL's Conduct patient checks and document Observation sheet: Q15 minutes Maintain personal safety: every shift Educate patient to report safety concerns to staff, every shift Monitor environment for contraband/sharps Medication safety: Monitor for expected outcome, potential side effects: every shift, Assess barriers to learning: every shift, Assess readiness for medication education: every shift <Aviva Schafer - Last Filed: 10/13/17 09:23> - Diagnosis (1) Major depressive disorder Status: Acute Interventions: Medication management, Individual and group therapy, Psychoeducation 10/13/17 09:24 <Cruz Falk - Last Filed: 10/14/17 07:39> Family Contact Family involvement: Family/SO is involved Family contact: Patient declines to allow family contact at present Family contact name: Pt denied. - Goals for Treatment Patient goals for treatment: Pt reported that she needs a few days to rest and get her thoughts together. Pt asked to be referred to outpatient therapy to learn positive coping skills and work through past traumas. Discharge/Continuing Care - Education Needs Education Needs: Patient Medication, Patient Diagnosis/Disease Process, Patient Coping Skills, Patient Anger Management skills, Patient Aftercare Safety Plan - Discharge Discharge Criteria: Tolerates medication w/o severe side effects, Free of Suicidal thoughts, Free of agitation, Normal sleep pattern, Reduction of target symptoms Discharge to:: Home, With Family - Treatment Team Participation Patient/Family/SO Statement: 10/13/17 07:36 Pt was met with in team where it was discussed discharge for 10/14/17. Pt was positive about this date and understood that she needed to take what she learned on the unit and apply it to the real world. Pt reported "good" mood and intermittent increases in her anxiety. Medications for discharge discussed. Discussed with Family/SO: No Was Patient/Family/SO present at Treatment Team Meeting: Yes
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
[2017-10-10 10:20] LABS: ALB/GLOB RATIO 1.5 (1.0-2.1); ALBUMIN 4.6 g/dL (3.5-5.0); ALT/SGPT 21 U/L (9-52); AST/SGOT 19 U/L (14-36); BLOOD UREA NITROGEN 10 mg/dl (7-17); CALCIUM 9.7 mg/dL (8.4-10.2); GFR AFRICAN-AMERICAN > 60; GFR NON-AFRICAN AMERICAN > 60; HDL CHOLESTEROL 47 MG/DL (30-70)
[2017-10-10 10:31] LABS: LDL CHOLESTEROL 100 mg/dL (0-129)
[2017-10-10 10:36] LABS: T4 9.33 ug/dl (5.5-11.0)
--- NOTE | 2017-10-10 10:40 | PCM.PYCHPN ---
Psychiatric Progress Note - Psychiatric Progress Note Patient seen today, length of contact: Patient evaluated, case discussed with team, chart reviewed Patient Chief Complaint: "I wanted to kill myself." Problems Identified/Issues Discussed: Patient was tearful during evaluation. She continues to report feeling depressed. She discussed her social stressors including that the of a man she dated is searching for her and causing problems at her job. She reports improved sleep. She denies ideation to harm herself at this time. Medication Change: No Medical Record Reviewed: Yes Consults ordered or reviewed: Medicine consult Mental Status Examination - Cognitive Function Orientation: Person, Place, Situation, Time Memory: Intact Attention: WNL Concentration: WNL Association: WNL Fund of Knowledge: [facility] Decription of patient's judgement and insights: Fair I/J - Mood Mood: Depressed - Affect Affect: Depressed - Speech Speech: Appropriate - Formal Thought Process Formal Thought Process: No Impairment Psychotic Thoughts and Behaviors: No AH/VH/paranoia/delusions - Suicidal Ideation Suicidal Ideation: No - Homicidal Ideation Homicidal Ideation: No Goal/Treatment Plan - Goal/Treatment Plan Need for Continued Stay: Remain at risks for inpatient hospitalization, Severe depression anxiety, Discharge may exacerbated symptoms Progress Toward Problem(s) and Goals/Treatment Plan: Major Depressive Disorder -Individual and group therapy -Continue Remeron 15 mg PO HS -Psychoeducation -Disposition planning Estimated Date of D/C: 10/14/17
--- NOTE | 2017-10-11 08:13 | PCM.PYCHPN ---
Psychiatric Progress Note - Psychiatric Progress Note Patient seen today, length of contact: Patient evaluated, case discussed with team, chart reviewed Patient Chief Complaint: "I'm depressed." Problems Identified/Issues Discussed: Patient is less tearful and has brighter affect. She continues to report feeling depressed. She reports poor sleep. She denies ideation to harm herself at this time. Medication Change: No Medical Record Reviewed: Yes Consults ordered or reviewed: Medicine consult Mental Status Examination - Cognitive Function Orientation: Person, Place, Situation, Time Memory: Intact Attention: WNL Concentration: WNL Association: WNL Fund of Knowledge: [facility] Decription of patient's judgement and insights: Fair I/J - Mood Mood: Depressed - Affect Affect: Depressed - Speech Speech: Appropriate - Formal Thought Process Formal Thought Process: No Impairment Psychotic Thoughts and Behaviors: No AH/VH/paranoia/delusions - Suicidal Ideation Suicidal Ideation: No - Homicidal Ideation Homicidal Ideation: No Goal/Treatment Plan - Goal/Treatment Plan Need for Continued Stay: Remain at risks for inpatient hospitalization, Severe depression anxiety, Discharge may exacerbated symptoms Progress Toward Problem(s) and Goals/Treatment Plan: Major Depressive Disorder -Individual and group therapy -Continue Remeron 15 mg PO HS -Psychoeducation -Disposition planning Estimated Date of D/C: 10/14/17
--- NOTE | 2017-10-12 11:25 | CARD ---
APPROVED REPORT EKG Measurement Heart [id number] <Conclusion> Normal sinus rhythm Normal ECG
--- NOTE | 2017-10-12 13:30 | CP.PCM.PN ---
Subjective - Date & Time of Evaluation Date of Evaluation: 10/12/17 Time of Evaluation: 13:29 - Subjective Subjective: 42 y/o F with PMHx GERD, Vertigo, and Rheumatoid Arthritis admitted to psych unit for suicidal ideation w/ plan. Seen and examined in rec room. No complaints. No acute events overnight. Objective - Vital Signs/Intake and Output Vital Signs (last 24 hours): Temp Pulse Resp BP Pulse Ox 97.9 F 79 18 106/70 98 10/12/17 09:00 10/12/17 09:00 10/12/17 09:00 10/12/17 09:00 10/09/17 09:09 - Medications Medications: Current Medications Acetaminophen (Tylenol 325mg Tab) 650 mg PO Q4 PRN PRN Reason: Pain, moderate (4-7) Al Hydrox/Mg Hydrox/Simethicone (Maalox Plus 30 Ml) 30 ml PO Q4 PRN PRN Reason: Dyspepsia Diphenhydramine HCl (Benadryl) 50 mg IM Q6 PRN PRN Reason: Extrapyramidal S/S Unable PO Diphenhydramine HCl (Benadryl) 50 mg PO Q6 PRN PRN Reason: Extrapyramidal Symptoms Famotidine (Pepcid) 20 mg PO DAILY [facility] Last Admin: 10/12/17 08:58 Dose: 20 mg Haloperidol (Haldol) 5 mg PO Q4 PRN PRN Reason: Agitation Haloperidol Lactate (Haldol) 5 mg IM Q4 PRN PRN Reason: Agitation, Unable to Take PO Lorazepam (Ativan) 2 mg IM Q4 PRN PRN Reason: Anxiety/Agitation,Unable PO Lorazepam (Ativan) 1 mg PO Q8 PRN PRN Reason: Anxiety Magnesium Hydroxide (Milk Of Magnesia) 30 ml PO HS PRN PRN Reason: Constipation Meclizine HCl (Antivert) 25 mg PO BID PRN PRN Reason: Motion sickness Last Admin: 10/12/17 08:59 Dose: 25 mg Mirtazapine (Remeron) 15 mg PO HS [facility] Last Admin: 10/11/17 21:00 Dose: 15 mg - Labs Labs: 10/09/17 04:06 10/10/17 09:41 - Constitutional Appears: Well, No Acute Distress - Eye Exam Eye Exam: absent: Conjunctival injection - ENT Exam ENT Exam: Mucous Membranes Moist - Respiratory Exam Respiratory Exam: Clear to Ausculation Bilateral, NORMAL BREATHING PATTERN - Cardiovascular Exam Cardiovascular Exam: REGULAR RHYTHM, +S1, +S2 - GI/Abdominal Exam GI & Abdominal Exam: Soft, Normal Bowel Sounds. absent: Tenderness - Extremities Exam Extremities Exam: absent: Pedal Edema - Neurological Exam Neurological Exam: Alert, Awake, Oriented x3 - Psychiatric Exam Psychiatric exam: Normal Affect - Skin Skin Exam: Dry, Intact, Warm Assessment and Plan - Assessment and Plan (Free Text) Assessment: 42 y/o F with PMHx GERD, Vertigo, and Rheumatoid Arthritis admitted to psych unit for suicidal ideation w/ plan Plan: 1. Depression -with suicidal ideation -on Mirtazapine 15 mg PO -Haloperidol 5 mg PO for agitation, Benadryl 50mg OI for extrapyrimidal symptoms -Ativan -inpatient psych unit -followed by psychiatrist 2. GERD -pepcid 20 mg PO daily -Magnesium Hydroxide 30 mls pO 3. H/O Vertigo -Meclizine 25 mg Q12 PRN -Noted a Cervical spine MRI done on 08/20/17 reported a minimal posterior bulge disc C4-5 level 4. H/O Rheumatoid Arthritis -no on DMARDs -symptomatic 5. DVT prophylaxis -actively ambulating.
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
--- NOTE | 2017-10-13 10:32 | PCM.PYCHPN ---
Psychiatric Progress Note - Psychiatric Progress Note Patient seen today, length of contact: Patient evaluated, case discussed with team, chart reviewed Patient Chief Complaint: "I'm feeling better." Problems Identified/Issues Discussed: Patient reports that her mood is improving. She feels less depressed and is more hopeful for the future w/ brighter affect. She is requesting to be discharged tomorrow. She denies acute anxiety/SI/HI/paranoia/delusions. Medication Change: No Medical Record Reviewed: Yes Consults ordered or reviewed: Medicine consult Mental Status Examination - Cognitive Function Orientation: Person, Place, Situation, Time Memory: Intact Attention: WNL Concentration: WNL Association: WNL Fund of Knowledge: [facility] Decription of patient's judgement and insights: Good I/J - Mood Mood: Anxious - Affect Affect: Constricted - Speech Speech: Appropriate - Formal Thought Process Formal Thought Process: No Impairment Psychotic Thoughts and Behaviors: No AH/VH/paranoia/delusions - Suicidal Ideation Suicidal Ideation: No - Homicidal Ideation Homicidal Ideation: No Goal/Treatment Plan - Goal/Treatment Plan Need for Continued Stay: Severe depression anxiety, Discharge may exacerbated symptoms Progress Toward Problem(s) and Goals/Treatment Plan: Major Depressive Disorder; patient is improving clinically and is requesting to be discharged tomorrow -Individual and group therapy -Continue Remeron 15 mg PO HS -Continue Buspar 5 mg PO BID -Psychoeducation -Disposition planning- Discharge tomorrow w/ outpatient follow-up Estimated Date of D/C: 10/14/17
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
[2017-10-14 09:18] VITALS: BP 118/75; PULSE 109; RESP 20; TEMP 98.2
== END 2017-10-14 14:50 | disposition home or self-care (01) | DRG 881 ==
LOC: H.ER 23:33 → H.ERHOLD 10-09 05:33 → H.PSYCH 10-09 09:46
PROVIDERS: ADMIT Psychiatry & Neurology Psychiatry; ATTEND Psychiatry & Neurology Psychiatry
DX: F32.9 Major depressive disorder, single episode, unspecified (principal); R45.851 Suicidal ideations; M06.9 Rheumatoid arthritis, unspecified; F12.90 Cannabis use, unspecified, uncomplicated; F41.9 Anxiety disorder, unspecified; G47.00 Insomnia, unspecified; K21.9 Gastro-esophageal reflux disease without esophagitis; R42 Dizziness and giddiness; M54.9 Dorsalgia, unspecified; G89.29 Other chronic pain; Z98.82 Breast implant status; Z87.891 Personal history of nicotine dependence

== ENCOUNTER 2018-03-24 05:10 | Emergency (ER) | payer BC, OTHER ==
[2018-03-24 05:11] VITALS: BMI 28.3
--- NOTE | 2018-03-24 06:09 | ED PDOC ---
Upper Extremity Pain/Injury Time Seen by Provider: 03/24/18 05:21 Chief Complaint (Nursing): Upper Extremity Problem/Injury Chief Complaint (Provider): Right Shoulder Pain / Arm Numbness History Per: Patient History/Exam Limitations: no limitations Onset/Duration Of Symptoms: Persistent (x couple weeks) Current Symptoms Are (Timing): Still Present Additional Complaint(s): 42 year old female presents to the ED for evaluation of chronic right shoulder pain and right arm numbness for the past couple weeks. Patient reports that she has been seen by her PMD and a neurologist for this issue, but the pain is persistent so she presents today. Of note, patient follows up with Dr. Parham who referred her to PT already. Denies shortness of breath, vomiting, and chest pain. PMD: [facility] at the [facility] Past Medical History Reviewed: Historical Data, Nursing Documentation, Vital Signs Vital Signs: Last Vital Signs Temp 98.6 F 03/24/18 05:19 Pulse 90 03/24/18 05:19 Resp 17 03/24/18 05:19 BP 106/53 L 03/24/18 05:19 Pulse Ox 97 03/24/18 05:19 - Medical History PMH: Arthritis, Depression Denies: Diabetes, Hepatitis, HIV, HTN, Chronic Kidney Disease, Seizures, Sexually Transmitted Disease - Surgical History Surgical History: Appendectomy - Family History Family History: States: Unknown Family Hx - Social History Current smoker - smoking cessation education provided: No Alcohol: None Drugs: Denies - Home Medications Home Medications: Ambulatory Orders Medication Instructions Recorded RX: Famotidine [Pepcid] 20 mg PO DAILY #30 tab 10/13/17 RX: Meclizine [Meclizine*] 25 mg PO BID PRN #60 tab 10/13/17 RX: Mirtazapine [Remeron] 15 mg PO HS #30 tab 10/13/17 RX: busPIRone [Buspar] 5 mg PO BID #60 tab 10/13/17 - Allergies Allergies/Adverse Reactions: Allergies Allergy/AdvReac Type Severity Reaction Status Date / Time No Known Allergies Allergy Verified 03/24/18 05:22 Review of Systems ROS Statement: Except As Marked, All Systems Reviewed And Found Negative Cardiovascular: Negative for: Chest Pain Respiratory: Negative for: Shortness of Breath Gastrointestinal: Negative for: Vomiting Musculoskeletal: Positive for: Shoulder Pain (right) Neurological: Positive for: Numbness (right arm) Physical Exam - Reviewed Nursing Documentation Reviewed: Yes Vital Signs Reviewed: Yes - Physical Exam Appears: Positive for: No Acute Distress Head Exam: Positive for: ATRAUMATIC, NORMOCEPHALIC Skin: Positive for: Normal Color, Warm Eye Exam: Positive for: Normal appearance ENT: Positive for: Normal ENT Inspection Neck: Positive for: Normal, Painless ROM, Supple Cardiovascular/Chest: Positive for: Regular Rate, Rhythm Respiratory: Positive for: Normal Breath Sounds. Negative for: Respiratory Distress Gastrointestinal/Abdominal: Positive for: Normal Exam, Soft. Negative for: Tenderness Back: Positive for: Normal Inspection Extremity: Positive for: Normal ROM, Tenderness (to right scapula). Negative for: Deformity, Swelling Neurologic/Psych: Positive for: Alert, door clamper II-XII, Oriented (x3), Gait (stable). Negative for: Motor/Sensory Deficits, Aphasia, Facial Droop - ECG ECG: Positive for: Interpreted By Me, Viewed By Me ECG Rhythm: Positive for: Normal QRS, Normal ST Segment, Sinus Rhythm (normal at 70bpm) O2 Sat by Pulse Oximetry: 97 (RA) Pulse Ox Interpretation: Normal Medical Decision Making Medical Decision Making: Time: 558 Initial Impression: chronic right shoulder pain, now radiating to scapula Initial Plan: --CXR --Motrin 600mg PO --Flexeril 10mg PO pt feels improved with meds. instructed to continue with outpt therapies including PT pt stable for dc home and outpt follow up Scribe Attestation: Documented by Daya Crystal acting as a scribe for Irais De Oliveira MD. Provider Scribe Attestation: All medical record entries made by the Scribe were at my direction and personally dictated by me. I have reviewed the chart and agree that the record accurately reflects my personal performance of the history, physical exam, medical decision making, and the department course for this patient. I have also personally directed, reviewed, and agree with the discharge instructions and disposition. Disposition - Clinical Impression Clinical Impression: Upper back pain, chronic - Patient ED Disposition Is Patient to be Admitted: No Counseled Patient/Family Regarding: Studies Performed, Diagnosis, Need For Followup - Disposition Disposition: Routine/Home Disposition Time: 07:00 Condition: IMPROVED Additional Instructions: follow up with your primary doctor at clinic within 1=2 days take motrin for pain return to the ED with any worsening or concerning symptoms Instructions: Upper Back Pain (DC) Forms: [employer] ([place]), [facility] ED School/Work Excuse
[2018-03-24 07:01] VITALS: BP 93/63; PULSE 78; RESP 16; TEMP 98.1
--- NOTE | 2018-03-24 07:55 | RAD ---
Date of service: 03/24/2018 HISTORY: r scapula pain COMPARISON: 10/09/2017 TECHNIQUE: Chest PA and lateral FINDINGS: LUNGS: No active pulmonary disease. PLEURA: No significant pleural effusion identified. No pneumothorax apparent. CARDIOVASCULAR: No aortic atherosclerotic calcification present. Normal cardiac size. No pulmonary vascular congestion. OSSEOUS STRUCTURES: No significant abnormalities. VISUALIZED UPPER ABDOMEN: Normal. OTHER FINDINGS: None. IMPRESSION: No active disease.
[2018-03-25 23:12] VITALS: O2SAT 97
--- NOTE | 2018-03-26 13:50 | CARD ---
APPROVED REPORT Date of service: 03/24/2018 EKG Measurement Heart [id number] <Conclusion> Normal sinus rhythm Normal ECG
== END 2018-03-24 07:03 | disposition home or self-care (01) ==
LOC: H.ER 05:10
DX: M54.9 Dorsalgia, unspecified (principal)

== ENCOUNTER 2018-04-03 08:08 | Emergency (ER) | payer BC, OTHER ==
[2018-04-03 08:15] VITALS: TEMP 98.3; BMI 26.2
--- NOTE | 2018-04-03 08:31 | ED PDOC ---
HPI: General Adult Time Seen by Provider: 04/03/18 08:10 Chief Complaint (Nursing): ENT Problem Chief Complaint (Provider): Sore Throat History Per: Patient History/Exam Limitations: no limitations Onset/Duration Of Symptoms: Days (x3) Current Symptoms Are (Timing): Still Present Additional Complaint(s): 42 year old female presents to the ED for evaluation of a sore throat and right earache for the past three days. Denies any associated fever, cough, or other complaint. PMD: none provided Past Medical History Reviewed: Historical Data, Nursing Documentation, Vital Signs Vital Signs: Last Vital Signs Temp 98.3 F 04/03/18 08:14 Pulse 82 04/03/18 08:14 Resp 16 04/03/18 08:14 BP 96/60 L 04/03/18 08:14 Pulse Ox 95 04/03/18 08:14 - Medical History PMH: Arthritis, Depression Denies: Diabetes, Hepatitis, HIV, HTN, Chronic Kidney Disease, Seizures, Sexually Transmitted Disease - Surgical History Surgical History: Appendectomy - Family History Family History: States: Unknown Family Hx - Social History Current smoker - smoking cessation education provided: No Alcohol: None Drugs: Denies - Home Medications Home Medications: Ambulatory Orders Medication Instructions Recorded Famotidine [Pepcid] 20 mg PO DAILY #30 tab 10/13/17 Meclizine [Meclizine*] 25 mg PO BID PRN #60 tab 10/13/17 Mirtazapine [Remeron] 15 mg PO HS #30 tab 10/13/17 busPIRone [Buspar] 5 mg PO BID #60 tab 10/13/17 Azithromycin [Zithromax] 250 mg PO DAILY #6 tab 04/03/18 Naproxen [Naprosyn] 500 mg PO Q12H #20 tab 04/03/18 - Allergies Allergies/Adverse Reactions: Allergies Allergy/AdvReac Type Severity Reaction Status Date / Time No Known Allergies Allergy Verified 03/24/18 05:22 Review of Systems ROS Statement: Except As Marked, All Systems Reviewed And Found Negative Constitutional: Negative for: Fever ENT: Positive for: Ear Pain (right), Throat Pain Respiratory: Negative for: Cough Physical Exam - Reviewed Nursing Documentation Reviewed: Yes Vital Signs Reviewed: Yes - Physical Exam Appears: Positive for: No Acute Distress Head Exam: Positive for: ATRAUMATIC, NORMOCEPHALIC Skin: Positive for: Normal Color, Warm Eye Exam: Positive for: Normal appearance ENT: Positive for: TM Is/Are (unremarkable bilaterally; ear canals clear), Pharyngeal Erythema. Negative for: Tonsillar Exudate Neck: Positive for: Normal, Painless ROM, Supple Cardiovascular/Chest: Positive for: Regular Rate, Rhythm Respiratory: Positive for: Normal Breath Sounds. Negative for: Respiratory Distress - ECG O2 Sat by Pulse Oximetry: 95 (RA) Pulse Ox Interpretation: Normal Medical Decision Making Medical Decision Making: Time: 826 Initial Impression: sore throat Initial Plan: --Rapid strep Scribe Attestation: Documented by Daya Crystal, acting as a scribe for Sanjay Cook MD. Provider Scribe Attestation: All medical record entries made by the Scribe were at my direction and personally dictated by me. I have reviewed the chart and agree that the record accurately reflects my personal performance of the history, physical exam, medical decision making, and the department course for this patient. I have also personally directed, reviewed, and agree with the discharge instructions and disposition. Disposition - Clinical Impression Clinical Impression: Right ear pain, Pharyngitis - Patient ED Disposition Is Patient to be Admitted: No Counseled Patient/Family Regarding: Studies Performed, Diagnosis, Need For Followup, Rx Given - Disposition Referrals: [facility] [Outside] Disposition: Routine/Home Disposition Time: 08:47 Condition: FAIR Prescriptions: Azithromycin [Zithromax] 250 mg PO DAILY #6 tab Naproxen [Naprosyn] 500 mg PO Q12H #20 tab Instructions: Sore Throat in Adults Forms: [employer] ([place])
[2018-04-03 10:02] VITALS: BP 104/76; PULSE 84; RESP 18; O2SAT 98
== END 2018-04-03 10:00 | disposition home or self-care (01) ==
LOC: H.ER 08:08
DX: J02.9 Acute pharyngitis, unspecified (principal); H92.01 Otalgia, right ear